=== PATIENT | male | born 1995 | race Caucasian/White ===

== ENCOUNTER 2020-05-09 19:56 | Emergency (ER) | payer SELFPAY ==
[2020-05-09 20:16] VITALS: BP 130/72; PULSE 63; RESP 17; TEMP 36.6; O2SAT 98; BMI 30.5
--- NOTE | 2020-05-09 21:02 | W.ED.DENTAL ---
HPI - Dental/Oral General: Chief complaint: Dental/Oral Stated complaint: L TOOTH PAIN Time Seen by Provider: 05/09/20 20:21 Source: patient Mode of arrival: ambulatory Limitations: no limitations History of Present Illness: HPI Narrative: 25-year-old male patient presents to the emergency department with dental pain. He reports dental pain x2 days. Reports pain to the left lower jaw, states is 1 tooth that is involved. He denies trauma. Reports dental decay. States dentist is Dr. Miranda -plans to call and schedule an appointment for evaluation. He denies difficulty swallowing, denies drooling or swelling under the tongue. MD Complaint: tooth pain Teeth map: 1. Onset (ago): day(s) (2) Duration: constant Severity: moderate Severity scale (1-10): 5 Associated symptoms: Reports no associated symptoms; Denies fever(s) Treatment prior to arrival: other (Tylenol ) Review of Systems General: Reports: 10 or more systems reviewed and unremarkable except in HPI and below Const: Denies: fever(s), chills or diaphoresis Eyes: Denies: blurry vision or eye redness ENMT: Reports: dental pain; Denies: throat pain, oral sores, disequilibrium, nasal discharge or nasal congestion Card: Denies: chest pain, palpitations or irregular heart rhythm Resp: Denies: dyspnea, productive cough, non-productive cough or wheezing GI: Denies: abdominal pain, nausea or vomiting : Denies: dysuria Musc: Denies: back pain Skin/Breast: Denies: rash or pruritus Neuro: Denies: headache(s), weakness in extremities or behavioral changes Psych: Denies: anxiety or depression Chuck/Lymph: Denies: easy bruising PFSH ED PFSH: Social History (Updated 12/12/19 @ 16:36 by Divina Lockwood LPN) Smoking and tobacco status: current every day smoker e-cigarettes Physical Exam Const: COMMON NORMALS: no acute distress, patient oriented x3, healthy appearing and alert GENERAL APPEARANCE: cooperative, comfortable and well hydrated HENMT: COMMON NORMALS: normocephalic, atraumatic, EAC's normal, TM's normal bilaterally, Normal external nose present and moist oral mucous membranes HEAD & SCALP: normal to inspection, normocephalic and atraumatic FACE & SINUS: normal facial exam, sinuses nontender and face symmetric NOSE: Normal external nose present EXTERNAL AUDITORY CANAL: EAC's normal TYMPANIC MEMBRANE: TM's normal bilaterally MOUTH: Normal oral and palatal mucosa present TEETH & GINGIVA: Yes caries and Yes fair dentition TEETH & GINGIVA IMAGES: 1. Gingival edema with erythema, suspect abscess, negative signs of Lana's angina, negative oral lesions appreciated, dental pain to the tooth with palpation THROAT: posterior oropharynx normal and uvula midline Eye: COMMON NORMALS: Equal, round and reactive pupils present and EOMs intact bilaterally GENERAL EYE: appearance normal, both eyes and all related structures PUPIL: Yes Equal, round and reactive pupils present Neck/C-Spine: COMMON NORMALS: full ROM and no lymphadenopathy GENERAL: Yes normal visual inspection and Yes trachea midline CERVICAL SPINE: Yes cervical ROM normal Lymph: LYMPHATIC: no lymphadenopathy noted Chest: COMMONS NORMALS: normal inspection of the chest Resp: COMMON NORMALS: normal respiratory effort and clear to auscultation bilaterally AUSCULTATION: clear to auscultation bilaterally Cardio: COMMON NORMALS: regular rhythm, S1 normal heart sound present and S2 normal heart sound present RHYTHM: regular rhythm HEART SOUNDS: S1 normal heart sound present and S2 normal heart sound present GI: COMMON NORMALS: Soft to palpation and non-tender INSPECTION: Yes normal to inspection PALPATION: Yes Soft to palpation : COMMON NORMALS: Yes no CVA tenderness BLADDER/KIDNEY EXAM: Yes no CVA tenderness Back/Pelvis: COMMON NORMALS: no CVA tenderness and thoracic and lumbar spine normal to inspection Extremity: COMMON NORMALS: normal to inspection and capillary refill normal Neuro: COMMON NORMALS: patient oriented x3 and no focal motor deficits SENSORIUM/ORIENTATION: Yes alert Psych: COMMON NORMALS: mental status grossly normal, Normal thought process present and cooperative ACTIVITY/MOTOR BEHAVIOR: Yes appropriate eye contact THOUGHT PROCESS: Normal thought process present Skin: COMMON NORMALS: no rashes or lesions noted and turgor normal GENERAL SKIN EXAM: no rashes or lesions noted and turgor normal Course Vital Signs: Vital signs: Vital Signs Temperature 97.8 F 05/09/20 20:16 Pulse Rate 63 05/09/20 20:16 Respiratory Rate 17 05/09/20 20:16 Blood Pressure 130/72 05/09/20 20:16 Pulse Oximetry 98 05/09/20 20:16 Discharge Plan Discharge Patient Disposition: Home Clinical Impression: Toothache, Dental caries, Dental abscess Condition: Stable Prescriptions: New clindamycin HCl 300 mg capsule 300 mg PO QID 7 Days Qty: 28 RF: 0 Lidocaine Viscous 2 % solution 1.2 applic topical Q3H PRN (Reason: pain) Qty: 15 RF: 0 Continued ibuprofen 800 mg tablet 800 mg PO Q8H PRN (Reason: pain) Qty: 20 RF: 0 No Action tizanidine [Zanaflex] 2 mg capsule 2 mg PO TID PRN (Reason: muscle spasticity) Qty: 20 RF: 0 Discharge Orders: Discharge Order (Routine); Ordered 05/09/20 Ordered By: Kiana Pugh Discharge Diet: GI Soft Discharge Activity: Resume usual activity Patient Instructions: Dental Abscess (ED), Toothache (ED) Activity Restrictions/Additional Instructions: Return to the emergency department if you develop redness of the face, increased dental pain, fever or drooling due to inability to swallow Take clindamycin until all gone Call your dentist tomorrow to schedule an appointment for evaluation within 10 days Take ibuprofen and clindamycin on a full stomach to avoid stomach upset May apply dental wax to the affected tooth to help with pain and sensitivity Warm salt water swish and spit as several times daily to help with pain and infection May take Tylenol, 1 g 3 times daily as needed for pain Coding Level of Care Code ED [employer] 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
[2020-05-09] MEDS: ketorolac 60 mg/2 mL INJ IM (21:19)
== END 2020-05-09 21:25 | disposition home or self-care (01) ==
PROVIDERS: Emergency Provider Nurse Practitioner Family
DX: K02.9 Dental caries, unspecified (principal); K04.7 Periapical abscess without sinus; F17.290 Nicotine dependence, other tobacco product, uncomplicated
CPT/HCPCS: 12345; 96372; 99281; 99282; J1885

== ENCOUNTER → 2020-12-31 13:09 | Outpatient (BNVA) | payer BC, SELFPAY | PROVIDERS: Visit Provider Registered Nurse Neonatal Intensive Care | DX: Z20.822 Contact with and (suspected) exposure to COVID-19 (principal) | CPT/HCPCS: 87635 ==

== ENCOUNTER 2021-11-22 16:05 | Emergency (ER) | payer BC, SELFPAY ==
[2021-11-22 16:10] VITALS: BP 113/76; PULSE 69; RESP 16; TEMP 35.9; O2SAT 97; BMI 29.2
[2021-11-22 16:19] VITALS: BP 113/76; PULSE 69; RESP 16; O2SAT 97
--- NOTE | 2021-11-22 16:38 | ED_ITS ---
HPI - Animal Bite General: Chief Complaint: Animal Bite Stated Complaint: bit by a dog, facial injury Time Seen by Provider: 11/22/21 16:13 History of Present Illness: Patient is a 26-year-old male comes to the ED with dog bites. Patient's was visiting a 4-month old puppy and it bit his upper lip causing a laceration. Puppy has all vaccinations except the rabies vaccine. The speech language specialist said that both puppies parents had rabies vaccinations and they were just waiting to give rabies vaccine since puppy is only 4 months. Patient is up-to-date on tetanus. Associated symptoms: Deny chills, fever(s) or headache(s) Review of Systems Const: Denies: fever(s), chills or fatigue Eyes: Denies: change in vision or eye discomfort ENMT: Denies: throat pain, odynophagia, nasal discharge or nasal congestion Card: Denies: chest pain, palpitations, edema, swelling of feet/ankles, dyspne a on exertion or orthopnea Resp: Denies: dyspnea, productive cough or non-productive cough GI: Denies: abdominal pain, nausea, vomiting, diarrhea, constipation or hematochezia : Denies: flank pain, difficulty urinating, dysuria or hematuria Musc: Denies: neck pain, back pain or extremity swelling Skin/Breast: Reports: new lesions (Upper lip laceration); Denies: rash Neuro: Denies: headache(s), numbness in extremities or weakness in extremities PFS ED PFSH: Medical History No pertinent family history Surgical History No pertinent past surgical history Social History Smoking and tobacco status: current every day smoker e-cigarettes Physical Exam Const: COMMON NORMALS: no acute distress, patient oriented x3 and alert GENERAL APPEARANCE: cooperative and comfortable HENMT: COMMON NORMALS: normocephalic HEAD & SCALP: normocephalic FACE & SINUS: laceration left upper lip linear (Involves vermilion border), superficial and with sensation intact; not actively bleeding, no pulsatile bleeding, with no foreign body present and not contaminated Facial laceration size: 0.5 cm MOUTH: Normal oral and palatal mucosa present THROAT: posterior oropharynx normal and uvula midline Neck/C-Spine: COMMON NORMALS: supple GENERAL: Yes normal visual inspection Resp: COMMON NORMALS: normal respiratory effort, No retractions, No use of accessory muscles and clear to auscultation bilaterally AUSCULTATION: clear to auscultation bilaterally Cardio: COMMON NORMALS: regular rate, regular rhythm, S1 normal heart sound present, S2 normal heart sound present, No gallops present (Cardio), No clicks present (Cardio), No murmurs present (Cardio) and Peripheral pulses 2+ throughout RATE: regular rate RHYTHM: regular rhythm HEART SOUNDS: S1 normal heart sound present and S2 normal heart sound present PERIPHERAL PULSES: Peripheral pulses 2+ throughout GI: COMMON NORMALS: Normal to inspection, nondistended, normoactive bowel sounds present, Soft to palpation, non-tender and no masses PALPATION: Yes Soft to palpation : COMMON NORMALS: Yes no CVA tenderness BLADDER/KIDNEY EXAM: Yes no CVA tenderness Back/Pelvis: COMMON NORMALS: no CVA tenderness Extremity: COMMON NORMALS: normal to inspection Neuro: COMMON NORMALS: patient oriented x3 and moves all extremities SENSORIUM/ORIENTATION: Yes alert Skin: GENERAL SKIN EXAM: dry skin Procedures Laceration Laceration 1: Site: lip (Upper) Size (cm): 0.5 Description: linear and involves mago border Depth: simple, single layer Local Anesthetic: lidocaine 1% Amount of anesthesia used (mL): 2 Pre-repair: irrigated extensively (Irrigated extensively with normal saline) Skin layer closed with: nylon Size (cm): 5-0 Number of sutures: 2 Technique: simple, interrupted Course Vital Signs: Vital signs: Vital Signs Temperature 96.7 F L 11/22/21 16:10 Pulse Rate 69 11/22/21 16:19 Respiratory Rate 16 11/22/21 16:19 Blood Pressure 113/76 11/22/21 16:19 Pulse Oximetry 97 11/22/21 16:19 MDM - Animal Bite Medical Decision Making Patient is a 26-year-old male comes to the ED with dog bite to upper lip. Dog was a fully vaccinated puppy that was 4 months old, but had not had rabies vaccination yet. Puppy was from reputable breeder and puppies parents were fully vaccinated with rabies vaccination as well. Patient is up-to-date on the tetanus. She has a small laceration to upper lip that involves the vermilion border. Lidocaine 1% was used as local. Lip laceration was irrigated extensively with normal saline. 2 sutures were placed to close lip laceration. Patient was discharged home with a prophylactic prescription for an antibiotic. He was told to have sutures removed in 5 days at his primary care provider's office or he can return here to the ED to have sutures removed. Patient understood and agreed with plan. Discharge Plan Discharge Patient Disposition: Home Clinical Impression: Dog bite Qualifiers: Encounter type: initial encounter Qualified Code(s): W54.0XXA - Bitten by dog, initial encounter Laceration of lip Qualifiers: Encounter type: initial encounter Qualified Code(s): S01.511A - Laceration without foreign body of lip, initial encounter Condition: Stable Prescriptions: New cephalexin 500 mg capsule 500 mg PO Q6H 4 Days Qty: 16 0RF Discharge Orders: Discharge ED (Routine); Ordered 11/22/21 Ordered By: David Adam Discharge Diet: Regular Discharge Activity: Increase activity as tolerated Patient Instructions: Animal Bite (ED), Facial Laceration (ED) Activity Restrictions/Additional Instructions: Take full course of antibiotics as prescribed. Keep laceration site dry for the next 24 hours. Then after that you can clean with soap and water and re-bandage daily. You can also apply a thin layer of triple antibiotic ointment on laceration to help with healing and prevent infection. Watch for signs of infection such as redness, warmth, increased tenderness and puslike drainage. If you see the signs of infection return to the ED, urgent care or PCP for reevaluation. call your PCP to schedule a follow-up appointment for reevaluation and suture removal in 5 days. Continue taking all home meds. Follow discharge plans as discussed. You can return to the ED if symptoms worsen. 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
== END 2021-11-22 17:09 | disposition home or self-care (01) ==
PROVIDERS: Emergency Provider Physician Assistant
DX: S01.511A Laceration without foreign body of lip, initial encounter (principal); W54.0XXA Bitten by dog, initial encounter
CPT/HCPCS: 12011; 99283